=== PATIENT | female | born 1940 | race Caucasian/White ===

== ENCOUNTER 2019-04-19 10:56 | Emergency (ER) | payer OTHER ==
[~2019-04-19] VITALS: Ht 152.4 cm; Wt 45.4 kg
== END 2019-04-19 20:27 | disposition home or self-care (01) ==
LOC: ER 10:56 → EDBD 10:56 → ER 15:41
DX: S00.83XA Contusion of other part of head, initial encounter (principal); S70.02XA Contusion of left hip, initial encounter; W18.39XA Other fall on same level, initial encounter; Y93.89 Activity, other specified; Y92.098 Other place in other non-institutional residence as the place of occurrence of the external cause; Y99.8 Other external cause status